=== PATIENT | male | born 1970 | race Caucasian/White ===

== ENCOUNTER 2016-06-19 19:06 | Emergency (ER) | payer MEDICARE, MEDICAID ==
[2016-06-19] MEDS ORDERED: Sodium Chloride 0.9% 10 ML Syringe FLUSH PRN (19:24)
[2016-06-19] MEDS ORDERED: Acetaminophen 325 MG Tab PO ONE (19:25)
[2016-06-19] MEDS ORDERED: Sodium Chloride 0.9% 1,000 ML IV SCH (19:30)
[2016-06-19] MEDS ORDERED: Acetaminophen 500 MG Tab PO ONE (19:32)
--- NOTE | 2016-06-19 19:59 | EDM.PDOC ---
ED HPI GENERAL MEDICAL PROBLEM - General Chief Complaint: General Stated Complaint: cough, SOTO, short of breath Time Seen by Provider: 06/19/16 19:40 Source of Information: Reports: Patient History Limitations: Reports: No limitations - History of Present Illness INITIAL COMMENTS - FREE TEXT/NARRATIVE: This patient is a 46 year old male that presents to the ER. Patient reports that for greater than 2 months having congestion, drainage, productive cough. Patient reports then since yesterday having fever, chest congestion, headache. Patient reports that there are several people at home and in his building that have had influenza, bronchitis, and fevers. Patient reports some mild nausea for about 1 month without vomiting. Patient denies facial pain, vision changes, v, d, abd pain, urinary changes, rash, neck pain, neck stiffness. Patient reports mild shortness of breath. Patient is fully alert and conversing in full and complete sentences without difficulty. Onset: gradual Onset Date: 06/18/16 Duration: Day(s): (1 worse since yesterday with fever and headache. ), Chronic ( Has had chronic congestion, drainage, cough for greater than 2 months), Getting worse Location: Reports: head, chest Quality: Reports: Throbbing Severity: mild Improves with: Reports: None Worsens with: Reports: None Associated Symptoms: Reports: cough, cough w sputum, fever/chills, headaches, nausea/vomiting, seizure (greater than 1 week ago. Chronic hx of seizures per patent. ), shortness of breath. Denies: confusion, chest pain, diaphoresis, loss of appetite, malaise, rash, syncope, weakness Headache Pain Score (Numeric/FACES): 3 Right Lower Back Pain Score (Numeric/FACES): 1 - Related Data Allergies Allergy/AdvReac Type Severity Reaction Status Date / Time aspirin Allergy Cannot Verified 06/19/16 19:08 Remember seizure meds Allergy Other Uncoded 06/19/16 19:08 Home Meds: Home Meds traMADol HCl [Tramadol HCl] 50 mg PO Q6H PRN 12/25/15 [History] Past Medical History HEENT History: Reports: Allergic rhinitis Cardiovascular History: Reports: High cholesterol, Hypertension Respiratory History: Reports: Asthma Gastrointestinal History: Reports: Other (see below) (umbilical hernia) Genitourinary History: Reports: Chronic renal insuffiency Musculoskeletal History: Reports: Back pain, chronic, Neck pain, chronic Neurological History: Reports: Seizure - Past Surgical History Cardiovascular Surgical History: Reports: None GI Surgical History: Reports: Esophageal dilatation Male Surgical History: Reports: Penile surgery Neurological Surgical History: Reports: None Social & Family History - Family History Family Medical History: Noncontributory - Tobacco Use Smoking Status *Q: Never Smoker Second Hand Smoke Exposure: No - Caffeine Use Caffeine Use: Reports: Coffee - Recreational Drug Use Recreational Drug Use: No - Living Situation & Occupation Living situation: Reports: , with family Occupation: disabled ED ROS GENERAL - Review of Systems Review Of Systems: See Below Constitutional: Reports: fever, chills. Denies: weakness, fatigue, diaphoresis , weight loss HEENT: Reports: Rhinitis, Sinus problem (congestion). Denies: Ear pain, Throat pain, Vision change Respiratory: Reports: Shortness of Breath, Cough, Sputum Cardiovascular: Reports: No symptoms Endocrine: Reports: no symptoms GI/Abdominal: Reports: Nausea. Denies: Abdominal pain, Diarrhea : Reports: no symptoms Musculoskeletal: Reports: no symptoms Skin: Reports: no symptoms Neurological: Reports: Headache, Seizure (greater than 1 week ago. Has chronic history of seizures. ). Denies: Tremors, Difficulty Walking, Weakness, Change in Speech, Gait Disturbance Psychiatric: Reports: No symptoms Hematologic/Lymphatic: Reports: no symptoms Immunologic: Reports: no symptoms ED EXAM, GENERAL - Physical Exam Exam: See Below Exam Limited By: No limitations General Appearance: alert, WD/WN, no apparent distress Eye Exam: bilateral eye: normal inspection, PERRL Ears: normal external exam, normal canal, hearing grossly normal, normal TMs Ear Exam: bilateral ear: auricle normal, canal normal, TM normal Nose: normal inspection, normal mucosa, no blood Throat/Mouth: Normal inspection, Normal lips, Normal teeth, Normal gums, Normal oropharynx, Normal voice, No airway compromise Head: atraumatic, normocephalic Neck: normal inspection, supple, non-tender, full range of motion Respiratory/Chest: no respiratory distress, no accessory muscle use, chest non- tender, rhonchi (mild RLL. ). No: respiratory distress, decreased breath sounds Cardiovascular: normal peripheral pulses, regular rate, rhythm, no edema, no gallop, no JVD, no murmur, no rub Peripheral Pulses: 2+: radial (L), radial (R), posterior tibial (L), posterior tibial (R) GI/Abdominal: soft, non tender Back Exam: normal inspection, full range of motion. No: CVA tenderness (L), CVA tenderness (R) Extremities: normal inspection, normal range of motion, non-tender, no pedal edema, normal capillary refill Neurological: alert, oriented Psychiatric: normal affect, normal mood Skin Exam: Warm, Dry, Intact, Normal color, No rash Lymphatic: no adenopathy Course - Vital Signs Last Recorded V/S: Last Vital Signs Temp 100.0 F 06/19/16 20:38 Pulse 115 H 06/19/16 19:10 Resp 20 06/19/16 19:10 BP 144/93 H 06/19/16 20:08 Pulse Ox 94 L 06/19/16 19:10 - Orders/Labs/Meds Labs: Laboratory Tests 06/19/16 06/19/16 06/19/16 Range/Units 19:40 19:40 19:40 WBC 6.5 (5.0-10.0) 10^3/uL RBC 5.07 (4.50-6.00) 10^6/uL Hgb 15.0 (14.0-18.0) g/dL Hct 43.3 (40.0-54.0) % MCV 85.4 (82.0-94.0) fL MCH 29.6 (27.0-32.0) pg MCHC 34.6 (33.0-38.0) g/dL RDW Coeff of Maurizio 13.3 (11.0-15.0) % Plt Count 217 (150-400) 10^3/uL Neut % (Auto) 60.1 (35-85) % Lymph % (Auto) 24.7 (10-55) % Pitt % (Auto) 11.4 (0-16) % Eos % (Auto) 3.5 (0-5) % Baso % (Auto) 0.3 (0-3) % Neut # (Auto) 3.90 (1.80-7.00) 10^3/uL Lymph # (Auto) 1.60 (1.00-4.80) 10^3/uL Pitt # (Auto) 0.74 (0.00-0.80) 10^3/uL Eos # (Auto) 0.23 (0.00-0.45) 10^3/uL Baso # (Auto) 0.02 10^3/uL Sodium 143 (136-145) mEq/L Potassium 4.0 (3.5-5.0) mEq/L Chloride 106 (98-106) mEq/L Carbon Dioxide 24 (21-32) mmol/L BUN 18 D (7-18) mg/dL Creatinine 1.2 (0.7-1.3) mg/dL Est Cr Clr Drug Dosing 72.83 mL/min Estimated GFR (MDRD) > 60 (>=60) mL/min Glucose 139 H D (75-99) mg/dL Lactic Acid 1.0 (0.4-2.0) mmol/L Calcium 8.2 L (8.4-10.1) mg/dL Total Bilirubin 0.6 (0.0-1.0) mg/dL AST 7 L (15-37) U/L ALT 23 (12-78) U/L Alkaline Phosphatase 79 (46-116) U/L Total Protein 7.2 (6.4-8.2) g/dL Albumin 3.7 (3.4-5.0) g/dL Meds: Medications Discontinued Medications Generic Name Dose Route Start Last Admin Trade Name Freq PRN Reason Stop Dose Admin Acetaminophen 1,000 mg 06/19/16 19:32 06/19/16 19:37 Tylenol Extra Strength PO 06/19/16 19:33 1,000 mg ONETIME ONE Administration Albuterol 1 gm 06/19/16 20:30 06/19/16 20:33 Ventolin Hfa INH 1 gm Q4H PRN Administration Dyspnea Ceftriaxone Sodium 1 gm 06/19/16 20:21 06/19/16 20:28 Rocephin IVPUSH 06/19/16 20:22 1 gm ONETIME ONE Administration Sodium Chloride 1,000 mls @ 500 mls/hr 06/19/16 19:30 06/19/16 19:44 Normal Saline IV 500 mls/hr ASDIRECTED LAINA Administration Sodium Chloride 10 ml 06/19/16 19:24 Saline Flush FLUSH ASDIRECTED PRN Keep Vein Open - Radiology Interpretation Free Text/Narrative:: CXR: no infiltrates. Nodule as seen on previous. No pulmonary edema. - Re-Assessments/Exams Free Text/Narrative Re-Assessment/Exam: 06/19/16 20:10 This patient is in no acute distress. He is nonemergent. His labs are unremarkable, I will view CXR, if stable will discharge home on prescribed medications. He will need to followup with his PCP. Departure - Departure Time of Disposition: 20:31 Disposition: Home, Self-Care 01 Condition: good Clinical Impression: Acute bronchitis Qualifiers: Bronchitis organism: unspecified organism Qualified Code(s): J20.9 - Acute bronchitis, unspecified Instructions: Acute Bronchitis, [id number] Referrals: Guzman Escobar MD [Primary Care Provider] - Forms: ED Department Discharge Additional Instructions: Followup with your primary care provider next week Return to the ER for worsening of condition or any emergent concerns Increase fluids Tylenol or Motrin for fever Cefdinir 300mg 1 pill twice a day for 7 days #14 no refill Prednisone 20mg 1 pill twice a day for 5 days #10 no refill Proair 90mcg 2 puffs every 4-6 hours as needed for shortness of breath #1 no refill - Assessment/Plan Plan: PLEASE SEE RN NOTE FOR PFSH.
[2016-06-19 20:05] LABS: CHLORIDE,CL 106 mEq/L (98-106); SODIUM,NA 143 mEq/L (136-145)
[2016-06-19 20:09] VITALS: BP 144/93
[2016-06-19] MEDS ORDERED: cefTRIAXone 1 GM Vial IVPUSH ONE (20:21)
[2016-06-19] MEDS ORDERED: Albuterol 8 GM Inhaler INH PRN (20:30)
== END 2016-06-19 20:50 | disposition home or self-care (01) ==
LOC: CC.ED 19:06
DX: J20.9 Acute bronchitis, unspecified (principal); E78.00 Pure hypercholesterolemia, unspecified; I10 Essential (primary) hypertension; J45.909 Unspecified asthma, uncomplicated; Z88.6 Allergy status to analgesic agent
CPT/HCPCS: 36415; 71020; 80053; 83605; 85025; 87040; 87804; 96361; 96374; 99284; A9270; J0696; J7030